=== PATIENT | female | born 1995 | race Caucasian/White ===

== ENCOUNTER 2022-04-23 18:47 | Emergency (ER) | payer SELFPAY ==
[~2022-04-23] VITALS: Ht 154.9 cm; Wt 75.0 kg
[2022-04-23 19:20] VITALS: TEMP 98.4
[2022-04-23] MEDS ORDERED: DESYREL 50MG50 MG PO (20:49)
[2022-04-23] MEDS ORDERED: PROZAC60 MG (20:50)
[2022-04-23] MEDS ORDERED: ATARAX 10MG10 MG/TAB PO (20:50)
[2022-04-23] MEDS ORDERED: PROAIR HFA0.09 MG/AC IH (20:51)
[2022-04-23] MEDS ORDERED: ADDERALL20 MG PO (20:51)
[2022-04-23 23:10] VITALS: BP 113/76; PULSE 68
== END 2022-04-23 23:10 | disposition home or self-care (01) ==
LOC: COL.ER 18:47
DX: S13.4XXA Sprain of ligaments of cervical spine, initial encounter (principal); S09.90XA Unspecified injury of head, initial encounter; V89.2XXA Person injured in unspecified motor-vehicle accident, traffic, initial encounter; Y92.410 Unspecified street and highway as the place of occurrence of the external cause